=== PATIENT | female | born 1990 | race Two or more races ===

== ENCOUNTER 2020-06-15 17:52 | Observation (INO) | payer SELFPAY | END 2020-06-15 18:55 | disposition home or self-care (01) | LOC: LDRP 17:52 | PROVIDERS: ADMIT Specialist; ATTEND Specialist | DX: O46.93 Antepartum hemorrhage, unspecified, third trimester (principal); Z3A.38 38 weeks gestation of pregnancy | CPT/HCPCS: 59025; 81002; G0378 ==